=== PATIENT | male | born 1960 | race Caucasian/White ===

== ENCOUNTER 2021-01-08 07:24 | Outpatient (CLI) | payer OTHER ==
[2021-01-08 08:14] LABS: Estimated GFR-MDRD - POC Greater than 90
== END 2021-01-08 07:25 | disposition home or self-care (01) ==
LOC: CSHCT 07:24
PROVIDERS: ATTEND Urology
DX: C67.9 Malignant neoplasm of bladder, unspecified (principal); R89.6 Abnormal cytological findings in specimens from other organs, systems and tissues
CPT/HCPCS: 74178; 82565

== ENCOUNTER 2024-01-16 12:27 | Outpatient (CLI) | payer BC | END 2024-01-16 12:28 | disposition home or self-care (01) | LOC: CSHMRI 12:27 | PROVIDERS: ATTEND Orthopaedic Surgery Hand Surgery | DX: M47.22 Other spondylosis with radiculopathy, cervical region (principal); M48.02 Spinal stenosis, cervical region | CPT/HCPCS: 72141 ==